=== PATIENT | female | born 1950 | race Caucasian/White ===

== ENCOUNTER 2020-07-20 06:15 | Day surgery (SDC) | payer MEDICARE, OTHER ==
[~2020-07-20] VITALS: Ht 165.1 cm; Wt 90.5 kg
--- NOTE | ~2020-07-20 | OR ---
[facility] [address] [place], [place] [address] Draft DATE OF OPERATION: 07/20/2020 SURGEON: Anusha Morrison MD PREOPERATIVE DIAGNOSIS: Left lower abdominal pain. POSTOPERATIVE DIAGNOSES: 1. Sigmoid diverticulosis. 2. Low rectal polyp. PROCEDURE: Total colonoscopy to cecum with cold morcellation polypectomy x1 and biopsy of left colon and rectum. ANESTHESIA: Intravenous sedation; fentanyl 150 mcg and Versed 5 mg. INDICATION: This 69-year-old white woman is a patient of Dr. Beebe and known to have diverticulosis. She last underwent colonoscopy in 2012. She has complaints of left lower abdominal symptoms including a sensation of the "colon being on fire." She has had no blood per rectum and no particular diarrhea. She has no family history of colon cancer or inflammatory bowel disease. She is admitted at this time to undergo colonoscopy. She understands the risks of bleeding, infection, and perforation. FINDINGS: The prep was excellent. Complete colonoscopy was undertaken to the cecum without question. She had numerous diverticula of the sigmoid and left colon. No sign of acute inflammation. There was no colitis. She did have a low rectal polyp, which was excised with cold morcellation technique. Careful inspection internally and externally did not show sign of anal fissure. DESCRIPTION OF PROCEDURE: The patient was brought to the endoscopy suite and placed in lateral decubitus position, given intravenous sedation to the point of slurred speech and nystagmus. Digital rectal examination was normal. The Olympus video colonoscope was passed in the rectum and manipulated throughout the colon. Numerous diverticula were seen in the sigmoid and left colon. The scope was ultimately passed to visualize the cecum and the ileocecal valve. The scope was withdrawn from that point and examination throughout showed no PATIENT NAME: CHRISTOPHER DOE OPERATIVE REPORT DATE OF : 46 REPORT #: [id number] PHYSICIAN: ANUSHA MORRISON MD PCP: STANLEY BEEBE MD REPORT IS CONFIDENTIAL AND NOT TO BE RELEASED WITHOUT AUTHORIZATION [facility] [address] [place], [place] [address] Draft sign of abnormality. Biopsies were taken of the left colon to assess for occult colitis. Diverticula were scattered throughout the colon, were not extensive but widely distributed in the left colon and sigmoid colon. Further withdrawal of the rectum allowed for retroflexed view, which showed a low rectal polyp and may be hyperplastic. It was excised with cold morcellation technique. The scope was straightened and withdrawn. Careful inspection through the anal canal showed no evidence of fissure. External examination using the endoscope was , also allowed for close inspection which showed no sign of fissure. The scope was removed and the patient was taken to the recovery room in good condition having suffered no complication. CONCLUDING DIAGNOSES: 1. Diverticulosis. 2. Small rectal polyp. PLAN: We will prescribe Metamucil 1 tablespoon daily. She will return to the ongoing care of Dr. Beebe. We will check her pathology report, particularly to assess for occult colitis. If the polyp is adenomatous, would recommend repeat colonoscopy in 5 years. MD BRE Marie/SHUN /[id number] cc: Stanley Beebe MD Copies: STANLEY BEEBE MD ~ PATIENT NAME: CHRISTOPHER DOE AMANDA OPERATIVE REPORT DATE OF : 46 REPORT #: [id number] PHYSICIAN: ANUSHA MORRISON MD PCP: STANLEY BEEBE MD REPORT IS CONFIDENTIAL AND NOT TO BE RELEASED WITHOUT AUTHORIZATION
[~2020-07-20 06:15] MED LIST: LISINOPRIL-HCT1 EAC2
--- NOTE | 2020-07-20 08:06 | NUR ---
07/20/20 0806 Nesha Vasquez 0802- PT TO PACU IN LL POSITION. EYES CLOSED. REPONDS TO VOICE. DENIES PAIN OR NAUSEA. BREATHING EASY AND UNLABORED. SPO2 >95% ON 3L O2 VIA NC. ETCO2 36. VSS. PT ENCOURAGED TO PASS GAS.
--- NOTE | 2020-07-20 14:24 | NUR ---
I COULD SEE RIGHT OFF THAT PT WAS VERY NERVOUS AND ANXIOUS REGARDING SCOPE TODAY. PT MENTIONED SHE ALSO VOMITED DURING PREP LAST NIGHT AND DID NOT WANT TO GO THROUGH PREP AGAIN. HAD PT BREATHE, WORKED TO CALM AND RELAX PT. HAD PRAYER WITH PT. HAD PRAYER WITH PT, WILL FOLLOW NEEDED
--- NOTE | 2020-07-21 13:40 | PATH ---
[facility] [facility] [address] [place], [place] [address] Signed SPECIMEN(S): A SIGMOID BIOPSY SPECIMEN(S): B RECTAL POLYP SPECIMEN(S): C RECTUM BIOPSY SPECIMEN SOURCE: A. SIGMOID BIOPSY B. RECTAL POLYP C. RECTUM BIOPSY CLINICAL HISTORY: Diverticulosis, abdominal pain. MICROSCOPIC DESCRIPTION: Histologic sections of all submitted blocks are examined by light microscopy. These findings, together with the gross examination, support the pathologic diagnosis. FINAL PATHOLOGIC DIAGNOSIS: A. Colon, sigmoid, biopsy: - Colonic mucosa with no histopathologic abnormality. - Negative for active, chronic, or microscopic colitis. - Negative for dysplasia or malignancy. B. Rectum, polyp, polypectomy: - Hyperplastic polyp. - Negative for dysplasia or malignancy. C. Rectum, biopsy: - Rectal mucosa with no histopathologic abnormality. - Negative for active or chronic proctitis. - Negative for dysplasia or malignancy. NAL:cml:C2NR GROSS DESCRIPTION: Three specimens are received in three containers, labeled "KW." A. The specimen, labeled "KW, one," and designated on the requisition "sigmoid biopsy," is received in formalin and consists of 2 adame soft tissue fragment(s) that measure 0.2 and 0.4 cm in greatest dimension. The specimen is entirely submitted in cassette (A1). B. The specimen, labeled "KW, 2," and designated on the requisition "rectum polypectomy," is received in formalin and consists of 3 adame soft tissue fragment(s) that measure 0.1 up to 0.5 cm in greatest dimension. The specimen is entirely submitted in cassette (B1). C. The specimen, labeled "KW, 3," and designated on the requisition "rectum PATIENT NAME: CHRISTOPHER DOE PATHOLOGY DATE OF : 46 REPORT #: [id number] PHYSICIAN: PELON PATHOLOGY PCP: STANLEY WHITE MD REPORT IS CONFIDENTIAL AND NOT TO BE RELEASED WITHOUT AUTHORIZATION [facility] [address] [place] [address] Signed biopsy," is received in formalin and consists of 2 adame soft tissue fragment(s) that measure 0.3 and 0.4 cm in greatest dimension. The specimen is entirely submitted in cassette (C1). AI (under the direct supervision of a pathologist) The Gross Description was prepared using a voice recognition system. The report was reviewed for accuracy; however, sound-alike word errors, addition and/or deletions may occur. If there is any question about this report, please contact Client Services. PERFORMING LABORATORY: The technical component was performed by [facility], [address] [place] [id number] (Glue Maker Bone: Pamela Jose MD; CLIA# [id number]). [facility] [address] [address] (CLIA# [id number]). Diagnostician: Rosangela Tripp MD Pathologist Electronically Signed 07/21/2020 Copies: ~ PATIENT NAME: CHRISTOPHER DOE AMANDA PATHOLOGY DATE OF : 46 REPORT #: [id number] PHYSICIAN: PELON PATHOLOGY PCP: STANLEY WHITE MD REPORT IS CONFIDENTIAL AND NOT TO BE RELEASED WITHOUT AUTHORIZATION
== END 2020-07-20 09:15 | disposition home or self-care (01) ==
LOC: OPS 06:15 → DS 06:15 → OPS 06:45 → DS 06:45 → OPS 09:15
PROVIDERS: ATTEND Surgery
PROC: 0DBN8ZX Excision of Sigmoid Colon, Via Natural or Artificial Opening Endoscopic, Diagnostic (ICD-10-PCS; 2020-07-20)
PROC: 0DBP8ZX Excision of Rectum, Via Natural or Artificial Opening Endoscopic, Diagnostic (ICD-10-PCS; principal; 2020-07-20 06:45)
DX: K57.30 Diverticulosis of large intestine without perforation or abscess without bleeding (principal); K62.1 Rectal polyp; I10 Essential (primary) hypertension; N63.10 Unspecified lump in the right breast, unspecified quadrant; E66.9 Obesity, unspecified; Z80.0 Family history of malignant neoplasm of digestive organs; Z88.5 Allergy status to narcotic agent; Z68.33 Body mass index [BMI] 33.0-33.9, adult
CPT/HCPCS: 99153; G0500; J2250; J3010; J7121